=== PATIENT | male | born 1975 | race Caucasian/White ===

== ENCOUNTER 2023-06-30 10:33 | Outpatient (CLI) | payer OTHER | END 2023-06-30 10:34 | disposition home or self-care (01) | LOC: CSHRAD 10:33 | PROVIDERS: ATTEND Internal Medicine Hematology & Oncology | DX: C10.8 Malignant neoplasm of overlapping sites of oropharynx (principal); Z95.828 Presence of other vascular implants and grafts; C79.9 Secondary malignant neoplasm of unspecified site; R91.8 Other nonspecific abnormal finding of lung field; J90 Pleural effusion, not elsewhere classified | CPT/HCPCS: 71046 ==